=== PATIENT | male | born 2000 | race Hispanic/Latino ===

== ENCOUNTER 2020-12-21 22:53 | Emergency (ER) | payer SELFPAY ==
[2020-12-21] MEDS ORDERED: IBUPROFEN 600 MG TABLET ONE (23:27)
[2020-12-21] MEDS ORDERED: CYCLOBENZAPRINE HCL 10 MG TABLET ONE (23:28)
== END 2020-12-21 23:38 | disposition home or self-care (01) ==
LOC: EDH 22:53
DX: M62.830 Muscle spasm of back (principal)